=== PATIENT | female | born 1940 | race Caucasian/White ===

== ENCOUNTER → 2022-01-24 | Outpatient (CLI) | payer BC ==
--- NOTE | 2022-01-24 16:17 | US ---
EXAMINATION TYPE: US venous doppler duplex LE LT DATE OF EXAM: 01/24/2022 4:00 PM COMPARISON: NONE CLINICAL HISTORY: R22.42 SWELLING MASS LUMP LEFT LOWER LIMB. Swelling. No hx of DVT. Patient is on Xa relto. SIDE PERFORMED: Left TECHNIQUE: The lower extremity deep venous system is examined utilizing real time linear array sonog memo with graded compression, doppler sonography and color-flow sonography. VESSELS IMAGED: Common Femoral Vein Deep Femoral Vein Greater Saphenous Vein * Femoral Vein Popliteal Vein Small Saphenous Vein * Proximal Calf Veins (* superficial vessels) Left Leg: Dilated superficial veins seen medial left knee. No evidence of DVT at this time. Patient cannot tolerate compression of left proximal femoral vein. Limitations due to edema. IMPRESSION: Suboptimal study without convincing evidence for acute DVT in the left lower extremity.
== END | disposition home or self-care (01) ==
LOC: RADUSWWP 15:10
PROVIDERS: ATTEND Internal Medicine Geriatric Medicine
DX: R22.42 Localized swelling, mass and lump, left lower limb (principal)

== ENCOUNTER → 2022-04-03 | Outpatient (CLI) | payer MEDICARE, BC ==
--- NOTE | 2022-04-08 19:52 | US ---
EXAMINATION TYPE: US arterial LE single level DATE OF EXAM: 04/03/2022 9:40 AM CLINICAL HISTORY: R60.9 EDEMA, UNSPECIFIED. Heart cath 1 year ago. Wound left lower leg for 6 months. Edema bilateral legs. History of: Smoker: N Hypertension: Y Diabetic: N Hyperlipidemia: N TIA/CVA: N Previous Vascular Surgery: N Doppler Waveforms: Right: Biphasic Left: Biphasic Right Brachial Pressure: 116 Left Brachial Pressure: 120 Ankle-Brachial Indices: Right: 1.27 Left: 1.36 Toe Brachial Indices: Right: 0.72 Left: 0.66 IMPRESSION: Normal study.
== END | disposition home or self-care (01) ==
LOC: RADUSWWP 08:55
PROVIDERS: ATTEND Internal Medicine Infectious Disease
DX: R60.0 Localized edema (principal); E11.9 Type 2 diabetes mellitus without complications; I10 Essential (primary) hypertension; E78.5 Hyperlipidemia, unspecified; Z87.891 Personal history of nicotine dependence; Z86.73 Personal history of transient ischemic attack (TIA), and cerebral infarction without residual deficits
CPT/HCPCS: 93922